=== PATIENT | female | born 1990 | race Caucasian/White ===

== ENCOUNTER 2018-12-21 13:08 | Inpatient (IN) ==
[2018-12-21] MEDS ORDERED: BENTYL PO PRN (13:52)
[2018-12-21] MEDS ORDERED: ZOFRAN ODT PO PRN (13:52)
[2018-12-21] MEDS ORDERED: TYLENOL PO PRN (13:52)
[2018-12-21] MEDS ORDERED: SALINE LOCK IV FLUID XX ONE (13:52)
[2018-12-21] MEDS ORDERED: PHENOBARBITAL IV PRN (13:52)
[2018-12-21] MEDS ORDERED: D5W 1,000 ML IV PRN (13:52)
[2018-12-21] MEDS ORDERED: MAALOX PLUS LIQUID PO PRN (13:52)
[2018-12-21] MEDS ORDERED: IMODIUM PO PRN (13:52)
[2018-12-21] MEDS ORDERED: SENOKOT PO PRN (13:52)
[2018-12-21] MEDS ORDERED: DULCOLAX PR PRN (13:52)
[2018-12-21] MEDS ORDERED: MOTRIN PO PRN (13:52)
[2018-12-21] MEDS ORDERED: DESYREL PO PRN (13:52)
[2018-12-21] MEDS ORDERED: ZOFRAN IM PRN (13:52)
[2018-12-21] MEDS ORDERED: TUBERSOL ID ONE (13:52)
[2018-12-21 14:22] LABS: HEMATOCRIT 42.7 % (37.0-47.0); HEMOGLOBIN 14.6 g/dL (12.0-16.0); MCH 33.5 PG (27-31); MCHC 34.2 g/dL (33-37); MCV 97.9 FL (81-99); MPV 9.3 FL (7.4-10.4); RBC 4.36 XMIL (4.2-5.4); RDW 12.7 % (11.5-14.5); WBC 13.28 X1000 (4.8-10.8)
[2018-12-21 14:34] LABS: INR 0.85; PROTIME 12.1 Seconds (11.0-16.0)
[2018-12-21 14:50] LABS: AMYLASE 63 U/L (20-200); LIPASE 48 U/L (13-60)
[2018-12-21 14:52] LABS: AGAP 10; ALBUMIN 4.4 g/dL (3.5-5.0); ALKALINE PHOSPHATASE 87 U/L (32-104); BUN 8 mg/dL (8-22); CALCIUM 10.3 mg/dL (8.8-10.2); CHLORIDE 101 mmol/L (98-107); COSMO 268; CREATININE 0.6 mg/dL (0.5-0.9); ESTIMATED GFR > 60; GLUCOSE 93 mg/dL (70-104); GOT 14 U/L (10-30); GPT 11 U/L (10-36); POTASSIUM 3.4 mmol/L (3.5-5.1); SODIUM 135 mmol/L (136-145); TCO2 24 mmol/L (25-35); TOTAL PROTEIN 7.5 g/dL (6.3-8.3)
[2018-12-21] MEDS: LIBRIUM PO SCH ×2 (15:35→21:20)
[2018-12-21] MEDS: NICODERM PATCH TD PRN (15:39)
[2018-12-21] MEDS ORDERED: M.V.I.-12 10 ML, FOLIC ACID 1 MG, MAGNESIUM SULFATE 1 GM, THIAMINE 100 MG in NS 1,000 ML IV ONE (16:00)
[2018-12-21 16:27] LABS: UR AMPHETAMINES QUAL PRESUMPTIVE POSITIVE (NONE DETECT); UR BARBITUATES QUAL NONE DETECTED (NONE DETECT); UR BENZODIAZEPIN QUAL NONE DETECTED (NONE DETECT); UR CANNABINOIDS QUAL PRESUMPTIVE POSITIVE (NONE DETECT); UR COCAINE QUAL NONE DETECTED (NONE DETECT); UR METHADONE QUAL NONE DETECTED (NONE DETECT); UR METHAMPHETAMINE QUAL PRESUMPTIVE POSITIVE (NONE DETECT); UR OPIATES QUAL NONE DETECTED (NONE DETECT); UR OXYCODONE QUAL NONE DETECTED (NONE DETECT); UR PCP QUAL NONE DETECTED (NONE DETECT); UR PROPOXYPHENE QUAL NONE DETECTED (NONE DETECT); UR TCA QUAL NONE DETECTED (NONE DETECT)
[2018-12-21 16:27] LABS: URINE SOURCE VOIDED
[2018-12-21 16:38] LABS: BILIRUBIN URINE NEGATIVE (NEGATIVE); BLOOD URINE 1+ (NEGATIVE); CLARITY SL. CLOUDY (CLEAR); COLOR YELLOW; GLUCOSE URINE NEGATIVE (NEGATIVE); KETONE URINE NEGATIVE (NEGATIVE); LEUKOCYTES URINE 1+ (NEGATIVE); NITRITE URINE POSITIVE (NEGATIVE); PROTEIN URINE NEGATIVE (NEGATIVE); UROBILINOGEN URINE NORMAL
[2018-12-21 16:41] LABS: URINE BACTERIA 2+ /HFP; URINE CAST NONE SEEN /LPF; URINE CRYSTAL CA OXALATE PRESENT /HPF; URINE EPITHELIAL CELLS >10 /HPF (<10); URINE RBC <10 /HPF (<10); URINE WBC <10 /HPF (<10); URINE YEAST NONE SEEN /HPF
[2018-12-21] MEDS: ATARAX PO PRN (18:40)
[2018-12-21] MEDS ORDERED: LIBRIUM PO ONE (18:48)
[2018-12-22] MEDS: LIBRIUM PO SCH ×4 (03:13→20:05)
[2018-12-22] MEDS: PROTONIX PO SCH (06:10)
[2018-12-22] MEDS ORDERED: LIBRIUM PO ONE (07:27)
[2018-12-22] MEDS: VITAMIN B-1 PO SCH (08:15)
[2018-12-22] MEDS: FOLIC ACID PO SCH (08:15)
[2018-12-22] MEDS: THERA M PLUS PO SCH (08:15)
[2018-12-22] MEDS: ATARAX PO PRN (12:13)
[2018-12-22] MEDS: ROBAXIN PO PRN ×2 (12:13→20:05)
[2018-12-22] MEDS: SEROQUEL PO PRN (20:06)
--- NOTE | 2018-12-22 22:43 | PROGRESS NOTE ---
DATE: 12/22/2018 SUBJECTIVE: Patient denies any fevers or chills. Notes that she still feels terrible, still having lots of muscle aches and myalgias. Denies chest pains or palpitations. PHYSICAL EXAMINATION: Vital Signs: Reviewed and stable. General: She is awake, alert. She is in no acute respiratory distress. HEENT: Normocephalic. Neck: Supple. Cardiovascular: Regular rate. Chest: Clear. Abdomen: Soft. Extremities: Moves all extremities. Vital signs: Reviewed. Temp 93 degrees, pulse 95, respiratory 20, BP 90/55. ASSESSMENT: 1. Nausea, vomiting, abdominal pain. 2. Tremors. 3. Myalgias. 4. Polysubstance abuse with alcohol and opiates. PLAN: We will continue patient in the hospital. Continue Librium taper, and will start Suboxone at a very low dose and will continue counseling. Further orders as needed. cc: Keith Amin MD
[2018-12-23] MEDS: LIBRIUM PO SCH ×4 (02:54→20:30)
[2018-12-23] MEDS: PROTONIX PO SCH (06:02)
[2018-12-23] MEDS: FOLIC ACID PO SCH (12:29)
[2018-12-23] MEDS: VITAMIN B-1 PO SCH (12:30)
[2018-12-23] MEDS: THERA M PLUS PO SCH (12:30)
[2018-12-23] MEDS: REVIA PO SCH (12:30)
[2018-12-23] MEDS: NICODERM PATCH TD PRN (15:50)
[2018-12-23] MEDS: SEROQUEL PO PRN (20:38)
--- NOTE | 2018-12-23 23:03 | PROGRESS NOTE ---
DATE: 12/23/2018 SUBJECTIVE: The patient notes that she is still having lots of problems with withdrawal symptoms. Interestingly, she states that Librium makes her crave alcohol more. She denies any tremors. Denies any fevers or chills. OBJECTIVE: Vital signs reviewed. Temperature 98.2 degrees, pulse 82, respiratory rate 18, BP 99/59. General: The patient is awake, alert. She is in no current respiratory distress. She is somewhat ill-appearing. HEENT: Normocephalic. Neck is supple. CV: Regular rate. Chest clear. Abdomen is soft. Extremities: Moves all extremities. ASSESSMENT: 1. Nausea and vomiting. 2. Abdominal pain. 3. Myalgias. 4. Paresthesias. 5. Tremors. 6. Alcohol abuse, withdrawal and stabilization. 7. Methamphetamine abuse, withdrawal and stabilization. PLAN: I discussed with the patient that it is not likely that Librium usage has made her crave alcohol intensely more; however, stated that her methamphetamine craving certainly could be worse. I did discuss with her that it is going to take more than a few minutes and a few days for her to [*]alcoholism. I stated she will need to be in life counseling as well as drug counseling. She is going to need a sponsor, change habits, etc. cc: Keith Amin MD
[2018-12-24] MEDS: LIBRIUM PO SCH (04:16)
[2018-12-24] MEDS: PROTONIX PO SCH (06:53)
[2018-12-24 07:41] VITALS: BP 118/82
[2018-12-24] MEDS: REVIA PO SCH ×2 (07:50→08:09)
[2018-12-24] MEDS: THERA M PLUS PO SCH ×2 (07:51→08:09)
[2018-12-24] MEDS: VITAMIN B-1 PO SCH ×2 (07:51→08:09)
[2018-12-24] MEDS: FOLIC ACID PO SCH ×2 (07:51→08:09)
[2018-12-24] MEDS ORDERED: LIBRIUM PO SCH (08:00)
== END 2018-12-24 09:51 | disposition home or self-care (01) | DRG 897 ==
LOC: P.MEDSURG 13:59
PROVIDERS: ADMIT Family Medicine; ATTEND Family Medicine
CPT/HCPCS: 80053; 80104; 80301; 80305; 80307; 80320; 81001; 82055; 82150; 83690; 84703; 85027; 85610; A9270; G0431; G0434; G0477; G0480; G6040; J3411; J3475; J7030